=== PATIENT | male | born 1965 | race Caucasian/White ===

== ENCOUNTER 2020-09-22 20:19 | Inpatient (IN) | payer OTHER, SELFPAY ==
[2020-09-22] VITALS (15 sets, daily range): BP systolic 89–125; BP diastolic 50–59; PULSE 54–73; RESP 14–23; TEMP 37.1; O2SAT 88–98
--- NOTE | 2020-09-22 20:37 | DI.RAD.S_ITS ---
PROCEDURE: XR CHEST 1V INDICATIONS: chest pain TECHNIQUE: One view of the chest was acquired. COMPARISON: None. FINDINGS: Surgical changes and devices: Mediastinum wires.. Lungs and pleura: Patchy opacities noted in the left lung base which could represent atelectasis or pneumonia. No pleural effusions or pneumothorax. Mediastinum: Mediastinal contours appear normal. Heart is enlarged. Bones and chest wall: No suspicious bony lesions. Overlying soft tissues appear unremarkable. IMPRESSION: Patchy left basilar airspace opacities which could represent atelectasis or pneumonia. Dictated by: Patricia Gonzalez MD, PhD on 09/22/2020 at 21:00 Approved by: Patricia Gonzalez MD, PhD on 09/22/2020 at 21:01
[2020-09-22] MEDS: SODIUM CHLORIDE 0.9% 1,000 ML 1000 ML IV ×2 (20:42→23:36)
[2020-09-22 20:45] LABS: INR 1.2 (0.9-1.3); Prothrombin Time 13.4 SECONDS (10.1-12.7)
[2020-09-22 20:48] LABS: Add Manual Diff / Slide Review NO; Basophils Absolute Auto 0 /uL (0-100); Basophils Percent Auto 0.4 % (0-2); Eosinophils Absolute Auto 0 /uL (0-450); Hematocrit 42.7 % (41-53); Hemoglobin 14.1 g/dL (13.5-17.5); Lymphocytes Absolute Auto 900 /uL (1100-4500); Lymphocytes Percent Auto 24.7 % (25-40); Mean Corpuscular HGB Conc 33.1 % (30-36); Mean Corpuscular Volume 84.7 fL (80-100); Monocytes Absolute Auto 400 /uL (0-900); Monocytes Percent Auto 10.9 % (3-14); Neutrophils Absolute Auto 2200 /uL (1500-7000); PTT Partial Thromboplastin Tim 32 SECONDS (26.4-36.2); Platelet Count 116 X10^3/uL (150-400); Red Blood Cell Count 5.04 X10^6/uL (4.5-5.9); Red Cell Distribution Width 14.4 % (11.6-14.8); White Blood Cell Count 3.5 X10^3/uL (4.5-11.0)
[2020-09-22 20:50] LABS: Alanine Aminotransferase 48 IU/L (<50); Albumin 3.6 g/dL (3.5-5.0); Albumin Globulin Ratio 1.2 (1.0-2.8); Alkaline Phosphatase 78 U/L (38-126); Aspartate Aminotransferase 82 IU/L (17-59); BUN Creatinine Ratio 16.4 (6-22); Bilirubin Total 0.4 mg/dL (0.2-1.3); Blood Urea Nitrogen 22 mg/dL (9-20); Calcium 8.3 mg/dL (8.4-10.2); Carbon Dioxide 23 mmol/L (22-32); Chloride 101 mmol/L (98-107); Creatine Kinase 188 U/L (55-170); Estimated Glomerular Filt Rate 55.3 mL/min (>60); Globulin 3.1 g/dL (1.7-4.1); Glucose 259 mg/dL (70-100); HEMOLYSIS 15 (0-50); Potassium 3.4 mmol/L (3.4-5.1); Sodium 134 mmol/L (137-145); Total Protein 6.7 g/dL (6.3-8.2)
[2020-09-22 21:02] LABS: Troponin I 0.034 ng/mL (0.01-0.034)
--- NOTE | 2020-09-22 21:12 | ED_ITS ---
HPI - Syncope General Chief Complaint: Syncope Stated Complaint: Syncope + COVID Saturday Time Seen by Provider: 09/22/20 20:23 Source: family and EMS Mode of arrival: EMS Limitations: no limitations History of Present Illness HPI narrative: This is a 54-year-old male who tested positive for COVID on Saturday. He initially had symptoms starting approximately a week ago on Saturday. Patient states he has had diaphoresis, myalgias, nausea without vomiting, diarrhea and felt generally unwell. He denies chest pain or pressure. He does not think he is having shortness of breath. He states that today he thought he was going to throw up, he got up to get to the bathroom realized he was not going to make it. He states he had a syncopal episode. He did feel like he was about to pass out. States he has been drinking fluids but not much. Patient does have a cardiac history. He has a triple bypass which was subsequently stented, hypertension, dyslipidemia, diabetes and is on insulin. Patient states that he and his live in their RV and travel. His primary care and Cardiology are in [place], [place]. Related Data Home Medications Medication Instructions Recorded Confirmed amlodipine 5 mg PO DAILY 09/22/20 09/22/20 aspirin 81 mg PO DAILY 09/22/20 09/22/20 atorvastatin 40 mg PO DAILY 09/22/20 09/22/20 clopidogrel [Plavix] 75 mg PO DAILY 09/22/20 09/22/20 dulaglutide [Trulicity] 1.5 mg SUBCUT QWEEK 09/22/20 09/22/20 empagliflozin [Jardiance] 25 mg PO QAM 09/22/20 09/22/20 fenofibrate 54 mg PO DAILY 09/22/20 09/22/20 hydralazine 50 mg PO BID 09/22/20 09/22/20 hydrochlorothiazide 25 mg PO Q OTHER DAY 09/22/20 09/22/20 insulin degludec [Tresiba U-100 76 unit SUBCUT DAILY 09/22/20 09/22/20 Insulin] insulin lispro [Humalog Pen] 15 unit SUBCUT DAILY 09/22/20 09/22/20 isosorbide dinitrate 20 mg PO BID 09/22/20 09/22/20 metformin 1,000 mg PO BID 09/22/20 09/22/20 metoprolol tartrate 200 mg PO DAILY 09/22/20 09/22/20 terazosin 5 mg PO DAILY 09/22/20 09/22/20 vitamin B complex [B 1 tab PO DAILY 09/22/20 09/22/20 Complex-Vitamin B12] Allergies Allergy/AdvReac Type Severity Reaction Status Date / Time lisinopril Allergy Anaphylaxis Verified 09/22/20 20:32 Review of Systems Review of Systems ROS Unobtainable: All systems reviewed & are unremarkable except as noted in HPI and below Patient History Medical History (Updated 09/23/20 @ 02:00 by JESSICA Hilario) Coronary artery disease due to type 2 diabetes mellitus Coronary artery disease involving autologous artery coronary bypass graft Essential hypertension Hyperlipidemia associated with type 2 diabetes mellitus Insulin dependent type 2 diabetes mellitus, uncontrolled Surgical History (Updated 09/23/20 @ 02:00 by JESSICA Hilario) History of coronary artery stent placement Hx of CABG Family History (Updated 09/23/20 @ 02:02 by JESSICA Hilario) Father Heart attack Hyperlipidemia Hypertension Mother Parent-child estrangement nec Social History household members: spouse Smoking Status: Never smoker Smoking Status: Never smoker alcohol intake frequency: other Substance Use Type: does not use Exam Narrative Exam Narrative: GENERAL: Alert and oriented x three, male in mild distress. Patient does feel warm to the touch. Patient is resting with his eyes closed. HEENT: Head normocephalic, atraumatic, EOMI, pupils reactive, face symmetric, moist mucous membranes NECK: Supple, full range of motion CARDIOVASCULAR: Regular rate and rhythm without murmurs, rubs or gallops. Midline healed chest incision consistent with prior CABG. RESPIRATORY: Breath sounds equal bilaterally, no wheezes rales or rhonchi. No tachypnea noted, no accessory muscle use. ABDOMEN: Soft, nontender. Normoactive bowel sounds all 4 quadrants. No guarding or rebound, rigidity, no mass : No CVA tenderness EXTREMITIES: Normal range of motion, no clubbing or edema. 2+ pulses bilateral lower extremities. Neurovascularly intact. NEUROLOGICAL: Cranial nerves II through XII grossly intact. Moving all extremities SKIN: Warm, dry, no petechiae, no rashes or lesions. Initial Vital Signs Initial Vital Signs: Vital Signs Temperature 98.8 F 09/22/20 20:27 Pulse Rate 57 L 09/22/20 20:27 Respiratory Rate 17 09/22/20 20:27 Blood Pressure 89/51 L 09/22/20 20:27 Pulse Oximetry 94 09/22/20 20:27 Scores GCS Negley coma scale eye opening: Spontaneous Negley coma scale verbal response: Orientated Beulah coma scale motor response: Obey commands Beulah coma scale total score: 15 Course Orders Ordered: ED Orders 09/22/20 20:25 C-Reactive Protein Quant Stat Complete Blood Count AUTO DIFF Stat Comprehensive Metabolic Panel Stat D Dimer Stat Erythrocyte Sedimentation Rate Urgent Ferritin Stat Hemoglobin A1C% w Est Avg Glu Urgent Lactate Dehydrogenase Stat Magnesium Urgent Partial Thromboplastin Time Stat Procalcitonin Stat Prothrombin Time INR Stat Troponin & CK Cardiac Panel Stat 09/22/20 20:37 XR chest 1V Stat 09/22/20 21:45 COVID19 - ADMIT (N[employer]ELTY TWISTER TENDER swab/PCR) Stat 09/22/20 21:55 Lactate (Lactic Acid) Stat 09/22/20 22:15 Blood Culture Stat 09/22/20 23:31 Education, smoking cessation ONGOING 09/22/20 23:55 Potassium Urgent 09/23/20 05:00 Comprehensive Metabolic Panel DAILY NT-proBNP (BNP-Adult 18+) Routine Prothrombin Time INR DAILY 09/24/20 05:00 Comprehensive Metabolic Panel DAILY Prothrombin Time INR DAILY Acetaminophen (Acetaminophen 325 Mg Tablet) 650 mg PO Q6HR PRN PRN Reason: Fever/Mild Pain (1-3) Albuterol (Albuterol Hfa Mdi 60 Puff/8 Gm Inhaler) 2 puff INH RTQ4HR PRN PRN Reason: Shortness Of Breath Amlodipine Besylate (Amlodipine 5 Mg Tablet) 5 mg PO DAILY LUCIEN Aspirin (Aspirin 81 Mg Chew Tab) 81 mg PO DAILY LUCIEN Atorvastatin Calcium (Atorvastatin 20 Mg Tablet) 40 mg PO DAILY LUCIEN Bisacodyl (Bisacodyl 5 Mg Tablet) 10 mg PO DAILY PRN PRN Reason: Constipation Clopidogrel Bisulfate (Clopidogrel 75 Mg Tablet) 75 mg PO DAILY LUCIEN Dexamethasone (Dexamethasone 10 Mg/Ml Vial) 6 mg PO DAILY LUCIEN Stop: 09/28/20 08:59 Dextrose (Dextrose 50 % In Water 25 Gm/50 Ml Syringe) 25 gm IV PRN PRN PRN Reason: Hypoglycemia Hydralazine HCl (Hydralazine 25 Mg Tablet) 50 mg PO BID LUCIEN Sodium Chloride (Normal Saline 0.9%) 1,000 mls @ 60 mls/hr IV CONT LUCIEN Last Admin: 09/23/20 00:30 Dose: 60 mls/hr Documented by: BUCK Remdesivir 100 mg/ Sodium (Chloride) 250 mls @ 250 mls/hr IV DAILY LUCIEN Stop: 09/28/20 08:59 Insulin Aspart (Insulin Aspart 100 Unit/Ml Insuln Pen) 0 unit SUBCUT ACHS [facility]; Protocol Last Admin: 09/23/20 01:58 Dose: 2 unit Documented by: BUCK Cosigned by: GPEREZ Isosorbide Dinitrate (Isosorbide Dinitrate 20 Mg Tablet) 20 mg PO BID [facility] Metoprolol Tartrate (Metoprolol Ir 50 Mg Tablet) 200 mg PO DAILY [facility] Naloxone HCl (Naloxone 0.4 Mg/Ml Vial) 0.2 mg IV Q2MIN PRN PRN Reason: Opiate Reversal Fenofibrate 54 Mg (Tablet) 54 mg PO DAILY [facility] Vitamin B Complex [B Complex-Vitamin B12 ] Tablet) 1 tab PO DAILY [facility] Ondansetron HCl (Ondansetron 4 Mg Odt) 4 mg PO Q8HR PRN PRN Reason: Nausea And Vomiting Pantoprazole Sodium (Pantoprazole 20 Mg Tablet) 20 mg PO 0600 LUCIEN Terazosin HCl (Terazosin 5 Mg Capsule) 5 mg PO DAILY LUCIEN Discontinued Medications Dexamethasone (Dexamethasone 10 Mg/Ml Vial) 6 mg IV NOW ONE Stop: 09/22/20 23:17 Last Admin: 09/22/20 23:36 Dose: 6 mg Documented by: FACUNDO Sodium Chloride (Normal Saline 0.9%) 1,000 mls @ 1,000 mls/hr IV BOLUS ONE Stop: 09/22/20 21:40 Last Infusion: 09/22/20 21:46 Dose: 0 mls/hr Documented by: Admin: 09/22/20 20:42 Dose: 1,000 mls/hr Documented by: FACUNDO Sodium Chloride (Normal Saline 0.9%) 1,000 mls @ 1,000 mls/hr IV BOLUS ONE Stop: 09/23/20 00:09 Last Admin: 09/22/20 23:36 Dose: 1,000 mls/hr Documented by: FACUNDO Remdesivir 200 mg/ Sodium (Chloride) 250 mls @ 250 mls/hr IV NOW ONE Stop: 09/22/20 23:17 Last Admin: 09/23/20 00:45 Dose: 250 mls/hr Documented by: BUCK Reevaluation(s) Time: 23:10 Consultations Consultation #1: JOURDAN Kitchen, accepts for observation. Time: 23:10 Vital Signs Vital signs: Vital Signs - 8 hr 09/22/20 20:27 09/22/20 20:32 09/22/20 20:50 Temperature 98.8 F Pulse Rate 57 L 54 L 61 Respiratory Rate 17 14 23 Blood Pressure 89/51 L 116/56 L Pulse Oximetry 94 92 92 09/22/20 21:00 09/22/20 21:15 09/22/20 21:30 Temperature Pulse Rate 66 73 68 Respiratory Rate 22 22 19 Blood Pressure 119/57 L 125/59 L 109/54 L Pulse Oximetry 96 97 97 09/22/20 21:45 09/22/20 22:00 09/22/20 22:15 Temperature Pulse Rate 66 70 67 Respiratory Rate 15 14 20 Blood Pressure 92/50 L 97/54 L 102/55 L Pulse Oximetry 97 97 97 09/22/20 22:30 09/22/20 22:45 09/22/20 23:00 Temperature Pulse Rate 68 70 67 Respiratory Rate 19 20 18 Blood Pressure 103/54 L 109/55 L 107/55 L Pulse Oximetry 98 97 97 09/22/20 23:15 09/22/20 23:30 09/22/20 23:46 Temperature Pulse Rate 65 64 65 Respiratory Rate 20 19 14 Blood Pressure 112/56 L 117/55 L 124/59 L Pulse Oximetry 97 97 98 MDM - Syncope Lab Data Attestation: I reviewed the patient's lab results. Result diagrams: 09/22/20 20:25 09/22/20 23:55 Labs: Lab Results 09/22/20 09/22/20 09/22/20 Range/Units 20:25 20:25 20:25 WBC 3.5 L (4.5-11.0) X10^3/uL RBC 5.04 (4.5-5.9) X10^6/uL Hgb 14.1 (13.5-17.5) g/dL Hct 42.7 (41-53) % MCV 84.7 (80-100) fL MCH 28.0 (26-34) PG MCHC 33.1 (30-36) % RDW 14.4 (11.6-14.8) % Plt Count 116 L (150-400) X10^3/uL Neut % (Auto) 64.0 (50-75) % Lymph % (Auto) 24.7 L (25-40) % Coos % (Auto) 10.9 (3-14) % Eos % (Auto) 0.0 L (2-4) % Baso % (Auto) 0.4 (0-2) % Neut # (Auto) 2200 (7074-3252) /uL Lymph # (Auto) 900 L (6098-8972) /uL Coos # (Auto) 400 (0-900) /uL Eos # (Auto) 0 (0-450) /uL Baso # (Auto) 0 (0-100) /uL ESR (0-15) MM/HR PT 13.4 H (10.1-12.7) SECONDS INR 1.2 (0.9-1.3) APTT 32 (26.4-36.2) SECONDS D-Dimer (<230) ng/mL Sodium 134 L (137-145) mmol/L Potassium 3.4 (3.4-5.1) mmol/L Chloride 101 (98-107) mmol/L Carbon Dioxide 23 (22-32) mmol/L BUN 22 H (9-20) mg/dL Creatinine 1.34 H (0.66-1.25) mg/dL Estimated GFR 55.3 L (>60) mL/min BUN/Creatinine Ratio 16.4 (6-22) Glucose 259 H (70-100) mg/dL Lactate (0.7-2.1) mmol/L Calcium 8.3 L (8.4-10.2) mg/dL Magnesium (1.6-2.3) mg/dL Ferritin (18-464) ng/mL Total Bilirubin 0.4 (0.2-1.3) mg/dL AST 82 H (17-59) IU/L ALT 48 (<50) IU/L Alkaline Phosphatase 78 (38-126) U/L Lactate Dehydrogenase (313-618) U/L Total Creatine Kinase 188 H (55-170) U/L CK-MB (CK-2) < 0.22 (<2.37) ng/mL CK-MB (CK-2) Rel Index 0.1 L (1.5-5.0) % Troponin I 0.034 (0.01-0.034) ng/mL C-Reactive Protein (<1.0) mg/dL Total Protein 6.7 (6.3-8.2) g/dL Albumin 3.6 (3.5-5.0) g/dL Globulin 3.1 (1.7-4.1) g/dL Albumin/Globulin Ratio 1.2 (1.0-2.8) Procalcitonin (<0.5) ng/mL SARS-CoV-2 (PCR) (Negative) 09/22/20 09/22/20 09/22/20 Range/Units 20:25 20:25 20:25 WBC (4.5-11.0) X10^3/uL RBC (4.5-5.9) X10^6/uL Hgb (13.5-17.5) g/dL Hct (41-53) % MCV (80-100) fL MCH (26-34) PG MCHC (30-36) % RDW (11.6-14.8) % Plt Count (150-400) X10^3/uL Neut % (Auto) (50-75) % Lymph % (Auto) (25-40) % Coos % (Auto) (3-14) % Eos % (Auto) (2-4) % Baso % (Auto) (0-2) % Neut # (Auto) (8650-2113) /uL Lymph # (Auto) (1898-5911) /uL Coos # (Auto) (0-900) /uL Eos # (Auto) (0-450) /uL Baso # (Auto) (0-100) /uL ESR (0-15) MM/HR PT (10.1-12.7) SECONDS INR (0.9-1.3) APTT (26.4-36.2) SECONDS D-Dimer 204 (<230) ng/mL Sodium (137-145) mmol/L Potassium (3.4-5.1) mmol/L Chloride (98-107) mmol/L Carbon Dioxide (22-32) mmol/L BUN (9-20) mg/dL Creatinine (0.66-1.25) mg/dL Estimated GFR (>60) mL/min BUN/Creatinine Ratio (6-22) Glucose (70-100) mg/dL Lactate (0.7-2.1) mmol/L Calcium (8.4-10.2) mg/dL Magnesium 2.0 (1.6-2.3) mg/dL Ferritin 220 (18-464) ng/mL Total Bilirubin (0.2-1.3) mg/dL AST (17-59) IU/L ALT (<50) IU/L Alkaline Phosphatase (38-126) U/L Lactate Dehydrogenase 678 H (313-618) U/L Total Creatine Kinase (55-170) U/L CK-MB (CK-2) (<2.37) ng/mL CK-MB (CK-2) Rel Index (1.5-5.0) % Troponin I (0.01-0.034) ng/mL C-Reactive Protein 5.9 H (<1.0) mg/dL Total Protein (6.3-8.2) g/dL Albumin (3.5-5.0) g/dL Globulin (1.7-4.1) g/dL Albumin/Globulin Ratio (1.0-2.8) Procalcitonin 0.15 (<0.5) ng/mL SARS-CoV-2 (PCR) (Negative) 09/22/20 09/22/20 09/22/20 Range/Units 20:25 21:45 21:55 WBC (4.5-11.0) X10^3/uL RBC (4.5-5.9) X10^6/uL Hgb (13.5-17.5) g/dL Hct (41-53) % MCV (80-100) fL MCH (26-34) PG MCHC (30-36) % RDW (11.6-14.8) % Plt Count (150-400) X10^3/uL Neut % (Auto) (50-75) % Lymph % (Auto) (25-40) % Coos % (Auto) (3-14) % Eos % (Auto) (2-4) % Baso % (Auto) (0-2) % Neut # (Auto) (8841-1900) /uL Lymph # (Auto) (9194-9344) /uL Coos # (Auto) (0-900) /uL Eos # (Auto) (0-450) /uL Baso # (Auto) (0-100) /uL ESR 15 (0-15) MM/HR PT (10.1-12.7) SECONDS INR (0.9-1.3) APTT (26.4-36.2) SECONDS D-Dimer (<230) ng/mL Sodium (137-145) mmol/L Potassium (3.4-5.1) mmol/L Chloride (98-107) mmol/L Carbon Dioxide (22-32) mmol/L BUN (9-20) mg/dL Creatinine (0.66-1.25) mg/dL Estimated GFR (>60) mL/min BUN/Creatinine Ratio (6-22) Glucose (70-100) mg/dL Lactate 0.9 (0.7-2.1) mmol/L Calcium (8.4-10.2) mg/dL Magnesium (1.6-2.3) mg/dL Ferritin (18-464) ng/mL Total Bilirubin (0.2-1.3) mg/dL AST (17-59) IU/L ALT (<50) IU/L Alkaline Phosphatase (38-126) U/L Lactate Dehydrogenase (313-618) U/L Total Creatine Kinase (55-170) U/L CK-MB (CK-2) (<2.37) ng/mL CK-MB (CK-2) Rel Index (1.5-5.0) % Troponin I (0.01-0.034) ng/mL C-Reactive Protein (<1.0) mg/dL Total Protein (6.3-8.2) g/dL Albumin (3.5-5.0) g/dL Globulin (1.7-4.1) g/dL Albumin/Globulin Ratio (1.0-2.8) Procalcitonin (<0.5) ng/mL SARS-CoV-2 (PCR) Positive H (Negative) Point of Care Testing Glucose POC 244 Imaging Data Chest x-ray: Radiologist's Impression: [address] [id number] ReportSigned Patient: Michael Hand#: [id number]: 1965Acct:[id number]/Sex: 54 / MDate of Service: 09/22/20Loc: EDAccession Number: [id number] Procedure: XR chest 1V Ordering Provider: Lisa Boggs D.O. PROCEDURE: XR CHEST 1V INDICATIONS: chest pain TECHNIQUE: One view of the chest was acquired. COMPARISON: None. FINDINGS: Surgical changes and devices: Mediastinum wires.. Lungs and pleura: Patchy opacities noted in the left lung base which could represent atelectasis or pneumonia. No pleural effusions or pneumothorax. Mediastinum: Mediastinal contours appear normal. Heart is enlarged. Bones and chest wall: No suspicious bony lesions. Overlying soft tissues appear unremarkable. IMPRESSION: Patchy left basilar airspace opacities which could represent atelectasis or pneumonia. Dictated by: Patricia Gonzalez MD, PhD on 09/22/2020 at 21:00 Approved by: Patricia Gonzalez MD, PhD on 09/22/2020 at 21:01 ECG Data Attestation: I personally reviewed and interpreted this ECG as follows: Prior ECG tracings: not available for review Interpretation: Sinus rhythm nonspecific ST changes. Rate of 60 MN 148 QRS 100 QTC 452. Patient has Q-wave in [address] elevation appreciated. Nonspecific change. No prior available. MDM Narrative Medical decision making narrative: 54-year-old male comes emergency department with known COVID infection diagnosed on Saturday with approximately 1 week of symptoms. Patient has been having nausea, vomiting and diarrhea. He does not feel short of breath at this time but did dip to 88% while resting. Patient does use a CPAP at night but unclear if there is any oxygen involved. He lives in an so this seems less likely. Patient was hypotensive with EMS, his blood pressure continued to improve with fluids patient continued to be hydrated gently. Patient does have a cardiac history. Troponin and EKG do not show any clear ischemic changes. His chest x-ray does show pneumonia, he is COVID positive here at [facility]. His labs show an elevation of lactate dehydrogenase, I leukopenia with thrombocytopenia. Negative D-dimer. Creatinine is 1.34 unclear what his normal baseline is. Glucose is elevated at 259. Patient does not have an elevated procalcitonin suggesting overlying bacterial infection is unlikely. His CRP is elevated. With patient's episode of hypoxia, COVID pneumonia and syncopal episode discussed with and N[employer]ELTY TWISTER TENDER Imtiaz who accepts for observation. As patient is on O2 dexamethasone 6 mg was ordered as well as Remdesivir. Discharge Plan Departure Patient Disposition: Admitted as Observation Clinical Impression: Pneumonia due to 2019-nCoV, Syncope Admit Date/Time: 09/22/20 23:54 Admit Provider: Sari Kitchen
[2020-09-22 21:15] LABS: CKMB % Relative Index 0.1 % (1.5-5.0); Creatine Kinase MB < 0.22 ng/mL (<2.37)
[2020-09-22 21:39] LABS: D Dimer 204 ng/mL (<230)
[2020-09-22 21:49] LABS: C-Reactive Protein Quant 5.9 mg/dL (<1.0)
[2020-09-22 22:00] LABS: Procalcitonin 0.15 ng/mL (<0.5)
[2020-09-22 22:02] LABS: Lactate Dehydrogenase 678 U/L (313-618)
[2020-09-22 22:14] LABS: Lactate (Lactic Acid) 0.9 mmol/L (0.7-2.1)
[2020-09-22 22:18] LABS: Ferritin 220 ng/mL (18-464)
[2020-09-22] MEDS: DEXAMETHASONE 10 MG/ML VIAL 6 MG IV (23:36)
--- NOTE | 2020-09-22 23:44 | PC.NURSE ---
patient desatting while sleeping to 88% on RA> He reports he has sleep apnea and does not have his CPAP machine.
[2020-09-23] VITALS (14 sets, daily range): BP systolic 121–155; BP diastolic 58–69; PULSE 59–67; RESP 13–20; TEMP 36.3–37.6; O2SAT 92–98; BMI 33.3
[2020-09-23 00:14] LABS: Erythrocyte Sedimentation Rate 15 MM/HR (0-15)
[2020-09-23 00:14] LABS: HEMOLYSIS < 15 (0-50); Potassium 3.8 mmol/L (3.4-5.1)
--- NOTE | 2020-09-23 00:21 | P.HP_ITS ---
History of Present Illness History of Present Illness Date Patient Seen: 09/22/20 Time Patient Seen: 23:54 Chief complaint: Syncope + COVID Saturday Narrative: Patient is a 54-year-old male Rickie Hand who tested positive for COVID on Saturday. Patient presented to the ED for chief complaint of diaphoresis, myalgias, nausea without vomiting, diarrhea and felt generally unwell, symptoms starting approximately a week ago on Saturday. He states he had a syncopal episode yesterday at approximately 8:00 p.m., observed by his , he is unsure as to how long he lost consciousness but things with approximately a few seconds he does not believe he hit his head but is unsure. He did feel like he was about to pass out for the past several days, but that sensation has resolved upon admit. The patient reports that he has had diarrhea up to 5 times a day for the past several days, mild diffuse cramping abdominal pain, positive nausea and coughing, runny nose, scratchy throat but no vomiting, fever, body aches or chills. He denies chest pain, pressure, shortness of breath, loss of taste, leg pain, or swelling of his feet or lower legs. He states that he has b een incontinent of urine for the past couple days ?I have been getting up to get to the bathroom realizing I was not going to make it. This is a new symptom for him and just onset couple days ago. He denies burning urgency or frequency. States he has been drinking fluids but has a poor appetite. Patient does have a cardiac history he has had 4 heart attacks and a triple bypass with subsequently 6 stents, hypertension, dyslipidemia. Patient denies a history of PE or DVT. Patient states that he retired so that he and his could live in their RV and travel. His primary care and Cardiology are in [place]. Hortencia is being tested for COVID tomorrow. Upon admit to the floor patient's vital signs are as follows temp 98.8?, BP 103/54, HR 68, RR 19, O2 saturation 98% on 2 L nasal cannula. Labs patient has a positive COVID PCR, WBC 3.5, platelets 116, Na 134, BUN 22, CR 1.34, glucose 259, EGFR 55.3, D-dimer 204, lactate 678, total creatinine kinase 188, CK-MB RI 0.1%, troponin 0.034, CRP 5.9, procalcitonin 0.15. CXR:Patchy left basilar airspace opacities which could represent atelectasis or pneumonia. Patient will it be admitted to the hospital for observation/isolation for COVID pneumonia, patient is on O2 so will initiate remdesivir 200 mg and dexamethasone 6 mg in the ED per protocol. Patient History Medical History (Updated 09/23/20 @ 02:00 by JESSICA Hilario) Coronary artery disease due to type 2 diabetes mellitus Coronary artery disease involving autologous artery coronary bypass graft Essential hypertension Hyperlipidemia associated with type 2 diabetes mellitus Insulin dependent type 2 diabetes mellitus, uncontrolled Surgical History (Updated 09/23/20 @ 02:00 by JESSICA Hilario) History of coronary artery stent placement Hx of CABG Family & Social History Family History (Updated 09/23/20 @ 02:02 by JESSICA Hilario) Father Heart attack Hyperlipidemia Hypertension Mother Parent-child estrangement nec Safety & Behavioral: Feels Safe in Current Yes Environment Been Physically Hurt or No Threatened By a Person Tobacco & Substance use: Smoking Status Never smoker alcohol intake frequency other Substance Use Type does not use Meds Home Medications and Allergies Home Medications Medication Instructions Recorded Confirmed Type amlodipine 5 mg PO DAILY 09/22/20 09/22/20 History aspirin 81 mg PO DAILY 09/22/20 09/22/20 History atorvastatin 40 mg PO DAILY 09/22/20 09/22/20 History clopidogrel [Plavix] 75 mg PO DAILY 09/22/20 09/22/20 History dulaglutide [Trulicity] 1.5 mg SUBCUT QWEEK 09/22/20 09/22/20 History empagliflozin [Jardiance] 25 mg PO QAM 09/22/20 09/22/20 History fenofibrate 54 mg PO DAILY 09/22/20 09/22/20 History hydralazine 50 mg PO BID 09/22/20 09/22/20 History hydrochlorothiazide 25 mg PO Q OTHER DAY 09/22/20 09/22/20 History insulin degludec [Tresiba U-100 76 unit SUBCUT DAILY 09/22/20 09/22/20 History Insulin] insulin lispro [Humalog Pen] 15 unit SUBCUT DAILY 09/22/20 09/22/20 History isosorbide dinitrate 20 mg PO BID 09/22/20 09/22/20 History metformin 1,000 mg PO BID 09/22/20 09/22/20 History metoprolol tartrate 200 mg PO DAILY 09/22/20 09/22/20 History terazosin 5 mg PO DAILY 09/22/20 09/22/20 History vitamin B complex [B 1 tab PO DAILY 09/22/20 09/22/20 History Complex-Vitamin B12] Allergies Allergy/AdvReac Type Severity Reaction Status Date / Time lisinopril Allergy Anaphylaxis Verified 09/22/20 20:32 Review of Systems Review of Systems ROS: Yes All systems reviewed with the patient and are negative except as otherwise documented Constitutional Constitutional: Reports fatigue and Reports poor appetite Eyes Eyes: Reports system reviewed and no additional complaints, except as documented ENT Ears, Nose, Mouth, and Throat: Yes system reviewed and no additional complaints, except as documented, Yes nasal discharge and Yes sore throat (Mild scratchy) Cardiovascular Cardiovascular: Reports syncope and Reports dyspnea on exertion Respiratory Respiratory: Reports cough and Reports dyspnea on exertion Gastrointestinal Gastrointestinal: Reports abdominal pain, Reports cramping and Reports loose stools Genitourinary Genitourinary: Reports urinary incontinence Neurologic Neurologic: Reports syncope Endocrine Endocrine: Reports fatigue Exam Vital Signs (past 8 hours): - 09/22/20 20:27 09/22/20 20:32 09/22/20 20:50 Temperature 98.8 F Pulse Rate 57 L 54 L 61 Respiratory Rate 17 14 23 Blood Pressure 89/51 L 116/56 L Pulse Oximetry 94 92 92 09/22/20 21:00 09/22/20 21:15 09/22/20 21:30 Temperature Pulse Rate 66 73 68 Respiratory Rate 22 22 19 Blood Pressure 119/57 L 125/59 L 109/54 L Pulse Oximetry 96 97 97 09/22/20 21:45 09/22/20 22:00 09/22/20 22:15 Temperature Pulse Rate 66 70 67 Respiratory Rate 15 14 20 Blood Pressure 92/50 L 97/54 L 102/55 L Pulse Oximetry 97 97 97 09/22/20 22:30 09/22/20 22:45 09/22/20 23:00 Temperature Pulse Rate 68 70 67 Respiratory Rate 19 20 18 Blood Pressure 103/54 L 109/55 L 107/55 L Pulse Oximetry 98 97 97 09/22/20 23:15 09/22/20 23:30 Temperature Pulse Rate 65 64 Respiratory Rate 20 19 Blood Pressure 112/56 L 117/55 L Pulse Oximetry 97 97 Oxygen Delivery Method Nasal Cannula Oxygen Flow Rate 2 Narrative Exam Narrative: General: Patient is a well-developed, well-nourished delightful male in no distress at this time. HEENT: Normocephalic, atraumatic, extraocular muscles intact, oral pharynx is clear and mucous membranes are dry. Neck is supple and symmetric, trachea is midline, no adenopathy, no thyroid enlargement, nontender, no masses palpated. Negative for JVD Chest: Normal AP diameter and contour without kyphoscoliosis, no nasal flaring, retractions, or tachypneic labored Lungs: Auscultation of all lung reyna are clear decreased but equal without adventitious sounds, wheezes, rhonchi, or rales. Cardio: S1 & S2 with regular rate and rhythm without murmur, rubs, or gallops, no carotid bruit, no cardiac pulsations present. Abdomen: Soft mild diffuse tenderness, negative for organomegaly, or masses. Bowel sounds are hyperactive present in all 4 quadrants without guarding or rebound, no CVA tenderness. Musculoskeletal: Muscle strength and tone are equal within normal limits, no deformity, crepitus, effusions, cyanosis, clubbing or edema present. Full range of motion intact radial and pedal pulses are normal. Skin: Warm dry and intact without rashes, ulcerations or petechiae. Neuro: Alert and orientated x3, strength is +5/5 in all extremities, sensation to touch intact, no gross deficits noted of cranial nerves. Psych: Patient has a well-kept appearance, appropriate affect, mental status attitude thought context and judgment are appropriate for age. Objective Labs Result Diagrams: 09/22/20 20:25 09/22/20 23:55 Labs: Laboratory Results - last 24 hr 09/22/20 09/22/20 09/22/20 20:25 20:25 20:25 WBC 3.5 L RBC 5.04 Hgb 14.1 Hct 42.7 MCV 84.7 MCH 28.0 MCHC 33.1 RDW 14.4 Plt Count 116 L Neut % (Auto) 64.0 Lymph % (Auto) 24.7 L Brewster % (Auto) 10.9 Eos % (Auto) 0.0 L Baso % (Auto) 0.4 Neut # (Auto) 2200 Lymph # (Auto) 900 L Brewster # (Auto) 400 Eos # (Auto) 0 Baso # (Auto) 0 ESR PT 13.4 H INR 1.2 APTT 32 D-Dimer Sodium 134 L Potassium 3.4 Chloride 101 Carbon Dioxide 23 BUN 22 H Creatinine 1.34 H Estimated GFR 55.3 L BUN/Creatinine Ratio 16.4 Glucose 259 H Lactate Calcium 8.3 L Magnesium Ferritin Total Bilirubin 0.4 AST 82 H ALT 48 Alkaline Phosphatase 78 Lactate Dehydrogenase Total Creatine Kinase 188 H CK-MB (CK-2) < 0.22 CK-MB (CK-2) Rel Index 0.1 L Troponin I 0.034 C-Reactive Protein Total Protein 6.7 Albumin 3.6 Globulin 3.1 Albumin/Globulin Ratio 1.2 Procalcitonin SARS-CoV-2 (PCR) 09/22/20 09/22/20 09/22/20 20:25 20:25 20:25 WBC RBC Hgb Hct MCV MCH MCHC RDW Plt Count Neut % (Auto) Lymph % (Auto) [place] % (Auto) Eos % (Auto) Baso % (Auto) Neut # (Auto) Lymph # (Auto) Brewster # (Auto) Eos # (Auto) Baso # (Auto) ESR PT INR APTT D-Dimer 204 Sodium Potassium Chloride Carbon Dioxide BUN Creatinine Estimated GFR BUN/Creatinine Ratio Glucose Lactate Calcium Magnesium 2.0 Ferritin 220 Total Bilirubin AST ALT Alkaline Phosphatase Lactate Dehydrogenase 678 H Total Creatine Kinase CK-MB (CK-2) CK-MB (CK-2) Rel Index Troponin I C-Reactive Protein 5.9 H Total Protein Albumin Globulin Albumin/Globulin Ratio Procalcitonin 0.15 SARS-CoV-2 (PCR) 09/22/20 09/22/20 09/22/20 20:25 21:45 21:55 WBC RBC Hgb Hct MCV MCH MCHC RDW Plt Count Neut % (Auto) Lymph % (Auto) [place] % (Auto) Eos % (Auto) Baso % (Auto) Neut # (Auto) Lymph # (Auto) Brewster # (Auto) Eos # (Auto) Baso # (Auto) ESR 15 PT INR APTT D-Dimer Sodium Potassium Chloride Carbon Dioxide BUN Creatinine Estimated GFR BUN/Creatinine Ratio Glucose Lactate 0.9 Calcium Magnesium Ferritin Total Bilirubin AST ALT Alkaline Phosphatase Lactate Dehydrogenase Total Creatine Kinase CK-MB (CK-2) CK-MB (CK-2) Rel Index Troponin I C-Reactive Protein Total Protein Albumin Globulin Albumin/Globulin Ratio Procalcitonin SARS-CoV-2 (PCR) Positive H 09/22/20 23:55 WBC RBC Hgb Hct MCV MCH MCHC RDW Plt Count Neut % (Auto) Lymph % (Auto) [place] % (Auto) Eos % (Auto) Baso % (Auto) Neut # (Auto) Lymph # (Auto) Brewster # (Auto) Eos # (Auto) Baso # (Auto) ESR PT INR APTT D-Dimer Sodium Potassium 3.8 Chloride Carbon Dioxide BUN Creatinine Estimated GFR BUN/Creatinine Ratio Glucose Lactate Calcium Magnesium Ferritin Total Bilirubin AST ALT Alkaline Phosphatase Lactate Dehydrogenase Total Creatine Kinase CK-MB (CK-2) CK-MB (CK-2) Rel Index Troponin I C-Reactive Protein Total Protein Albumin Globulin Albumin/Globulin Ratio Procalcitonin SARS-CoV-2 (PCR) Assessment & Plan Assessment & Plan narrative: 1.Acute COVID pneumonia, acute, present on admission SARS-CoV-2 -positive COVID test 4 days ago, patient is not in respiratory distress, acute respiratory failure or hypoxic. -In ED: Respiratory panel- negative, positive COVID test on 09/20/20 , blood cultures pending, patient given 6 mg of dexamethasone, normal saline 1000 cc, remdesivir 200 mg. -patient to be monitored on tele medicine, reverse isolation room, isolation protocol vital signs q.4 hours, intake and output monitored Q shift, weight measure daily, diet: Heart healthy -Supplemental NC -maintain SaO2 greater than 90%, check peak flow expiratory flow q.day 1-2 days. -vital signs on admission: 98.8?, BP 103/54, HR 68, RR 19, O2 saturation 98% on 2 L nasal cannula. Labs patient has a positive COVID PCR, WBC 3.5, platelets 116, Na 134, BUN 22, CR 1.34, glucose 259, EGFR 55.3, D-dimer 204, lactate 678, total creatinine kinase 188, CK-MB RI 0.1%, troponin 0.034, CRP 5.9, procalcitonin 0.15. CXR:Patchy left basilar airspace opacities which could represent atelectasis or pneumonia. -medications ordered: Remdesivir 200 mg given in ED, starting tomorrow 100 mg p.o. q.day x5 days & dexamethasone 6 mg QD x 5 days or until D/C per coronavirus infectious disease guidelines per up-to-date [facility] Medical will management guidelines for COVID-19 patient's. -Consider proning if patient becomes hypoxic -On admit SOFA score of 3 , SAPS II Score of 15 (2.0% in-hospital risk of mortality) -albuterol HFA inhaler 2 puffs every 4-6 hours as needed cough or shortness of breath, -labs ordered PT/PTT every other day, troponin 48 hour repeat, D-dimer and lactate repeat in a.m., CBC and CMP daily, sputum culture and Gram stain- ordered in ED -avoiding nebulizer aerosol treatments, if signs and symptoms are worsening order chest x-ray and echo -monitor patient for developing respiratory distress, acute CO, ischemic stroke, PE, DVT, venous thrombosis, hyperglycemia an increased risk of bacterial, fungal, and strongyloides infections. -consults recommended for discharge physical therapy, occupational therapy, respiratory therapy. -prevention vaccine: Recommend yearly flu vaccine, shingles, pneumonia, COVID vaccine when it is available. 2. Syncopal episode, witnessed, acute, not present on admission-likely the result of hypotension secondary to COVID pneumonia infection resulting in dehydration from diarrhea. -provide hydration normal saline 100 cc/hour -patient denies head injury -fall precautions in place, monitor patient for hypotension and altered level of consciousness. 3. Insulin-dependent type 2 diabetes associated with hyperlipidemia and coronary artery disease, acute on chronic, uncontrolled, present on admission -BS 259, A1C ordered --will hold all oral/injection medications for diabetes, diabetes protocol ordered patient to receive NovoLog low-dose sliding scale Monitor for hypoglycemia. 4. Essential hypertension, chronic, not present on admission, associated with hyperlipidemia and coronary artery disease, chronic, control unknown ultimate resulting in CABG with stent placement x6, not present on admission -continue patient's amlodipine, Atrovent statin, Plavix, fenofibrate, hydralazine, hydrochlorothiazide, metoprolol -monitor patient for hypotension COVID PCR: Positive 09/20/2020 VTE prophylaxis: Patient on Plavix 75 mg Code status:Full Surrogate decision maker: Spouse Hortencia Peace Scores GCS [place] coma scale eye opening: Spontaneous [place] coma scale verbal response: Orientated [place] coma scale motor response: Obey commands [place] coma scale total score: 15 SOFA PaO2/FIO2: < 400 mmHg Platelets: < 150 Bilirubin: < 1.2 mg/dL Hypotension: MAP >= 70 mmHg [place] Coma Scale: 15 Renal: Creatinine 1.2-1.9 mg/dL SOFA Score: 3 Wells' Criteria for PE Clinical signs and symptoms of DVT: No PE is #1 Dx or equally likely: No Heart rate > 100: No Immobilization at least 3 days or surg in previous 4 weeks: No History of PE or DVT: No Hemoptysis: No Malignancy w/Treatment within 6 months or palliative: No Wells' PE Score total: 0
[2020-09-23] MEDS: SODIUM CHLORIDE 0.9% 1,000 ML 60 ML IV (00:30)
[2020-09-23] MEDS: REMDESIVIR 200 MG in SODIUM CHLORIDE 0.9% 210 ML 250 ML IV (00:45)
[2020-09-23] MEDS: INSULIN ASPART 100 UNIT/ML INSULN PEN SUBCUT ×5 (01:58→21:16)
[2020-09-23 02:51] LABS: Hemoglobin A1C% w Est Avg Glu 7.1 % (4.0-6.0)
[2020-09-23] MEDS: SODIUM CHLORIDE 0.9% 1,000 ML 100 ML IV ×3 (03:15→22:16)
[2020-09-23 04:49] LABS: INR 1.2 (0.9-1.3); Prothrombin Time 13.2 SECONDS (10.1-12.7)
[2020-09-23 04:50] LABS: Lactate (Lactic Acid) 0.9 mmol/L (0.7-2.1)
[2020-09-23 04:51] LABS: Alanine Aminotransferase 41 IU/L (<50); Albumin 3.2 g/dL (3.5-5.0); Albumin Globulin Ratio 1.1 (1.0-2.8); Alkaline Phosphatase 62 U/L (38-126); Aspartate Aminotransferase 61 IU/L (17-59); BUN Creatinine Ratio 19.3 (6-22); Bilirubin Total 0.2 mg/dL (0.2-1.3); Blood Urea Nitrogen 21 mg/dL (9-20); Calcium 7.2 mg/dL (8.4-10.2); Carbon Dioxide 23 mmol/L (22-32); Chloride 108 mmol/L (98-107); Estimated Glomerular Filt Rate > 60.0 mL/min (>60); Globulin 2.8 g/dL (1.7-4.1); Glucose 244 mg/dL (70-100); HEMOLYSIS < 15 (0-50); Potassium 4.2 mmol/L (3.4-5.1); Sodium 137 mmol/L (137-145)
[2020-09-23 04:59] LABS: D Dimer 250 ng/mL (<230)
[2020-09-23 05:00] LABS: NT-proBNP (BNP-Adult 18+) 155 pg/mL (<125)
[2020-09-23] MEDS: PANTOPRAZOLE 20 MG TABLET PO (05:04)
--- NOTE | 2020-09-23 05:26 | PC.ADMIT ---
[address] [facility] [id number] Admission Note: Patient arrived to unit at midnight from ED via stretcher, patient alert and oriented x4. Patient was able to stand and ambulate to bed. Patient not complaining of any pain or shortness of breath at this time. Patient on 2L nasal cannula and satting mid to upper 90s, other vital signs WNL. Patient is covid positive and was placed into negative pressure room. Patient was oriented to room and given call galvin. Bed in lowest position and wheels locked. Patient has IV fluids running. Patient verbalizes understanding to call for help if he needs to go to the bathroom. The patient,Rickie Hand,54 y/o, was given written information regarding hospital policies, unit procedures and contact persons. Patient's smoking status: Never smoker. Vital Signs - 8 hr 09/22/20 21:30 09/22/20 21:45 09/22/20 22:00 Temperature Pulse Rate 68 66 70 Respiratory Rate 19 15 14 Blood Pressure 109/54 L 92/50 L 97/54 L Pulse Oximetry 97 97 97 09/22/20 22:15 09/22/20 22:30 09/22/20 22:45 Temperature Pulse Rate 67 68 70 Respiratory Rate 20 19 20 Blood Pressure 102/55 L 103/54 L 109/55 L Pulse Oximetry 97 98 97 09/22/20 23:00 09/22/20 23:15 09/22/20 23:30 Temperature Pulse Rate 67 65 64 Respiratory Rate 18 20 19 Blood Pressure 107/55 L 112/56 L 117/55 L Pulse Oximetry 97 97 97 09/22/20 23:46 09/23/20 00:00 09/23/20 04:00 Temperature 99.1 F Pulse Rate 65 64 62 Respiratory Rate 14 13 15 Blood Pressure 124/59 L 133/63 124/58 L Pulse Oximetry 98 97 96
[2020-09-23 06:41] LABS: Bilirubin Urine UA NEGATIVE (NEGATIVE); Color Urine UA YELLOW; Glucose Urine UA 2+ g/dL (Negative); Ketones Urine UA TRACE (NEGATIVE); Leukocyte Esterase Urine UA NEGATIVE (NEGATIVE); Nitrite Urine UA POSITIVE (Negative); Occult Blood Urine UA TRACE-LYSED (Negative); Protein Urine UA 1+ (Negative); Urobilinogen Urine UA 0.2 E.U./dL (0.2)
[2020-09-23 06:50] LABS: Amorphous Sediment Urine 1+; Appearance Urine UA Slightly Cloudy; Bacteria Urine Moderate (10-30); Culture Indicated Urine Specimen Cultured; Hyaline Casts Urine 0-1/LPF; RBC Urine 0-1/HPF (0-5/HPF); Squamous Epithelial Cell Urine 0-1 /HPF (0-5/HPF); WBC Urine 5-10/HPF (0-5/HPF)
--- NOTE | 2020-09-23 08:02 | DIET.PN ---
Dietary Progress Note RD Note: Covid Positive patient c cardiac hx and DM2 on insulin (A1c 7.1) assigned small CCD. Kitchen sending up ONS Ensure Max c lunches to support pts protein need in CCD and bariatric friendly formula.
[2020-09-23] MEDS: HYDRALAZINE 25 MG TABLET 50 MG PO ×2 (08:53→21:14)
[2020-09-23] MEDS: METOPROLOL IR 50 MG TABLET 200 MG PO (08:54)
[2020-09-23] MEDS: ATORVASTATIN 20 MG TABLET 40 MG PO (08:54)
[2020-09-23] MEDS: ASPIRIN 81 MG CHEW TAB PO (08:54)
[2020-09-23] MEDS: AMLODIPINE 5 MG TABLET PO (08:54)
[2020-09-23] MEDS: CLOPIDOGREL 75 MG TABLET PO (08:54)
[2020-09-23] MEDS: TERAZOSIN 5 MG CAPSULE PO (08:54)
[2020-09-23] MEDS: DEXAMETHASONE 10 MG/ML VIAL 6 MG PO (08:55)
[2020-09-23] MEDS: ACETAMINOPHEN 325 MG TABLET 650 MG PO (09:19)
--- NOTE | 2020-09-23 11:36 | P.PN_ITS ---
Subjective Subjective Date Patient Seen: 09/23/20 Time Patient Seen: 11:37 Interval history: Rickie Hand is a 54-year-old male with a past medical history of CAD, type 2 diabetes, obesity, and hypertension who was admitted with acute respiratory failure requiring supplemental oxygen secondary to COVID-19 pneumonia. His respiratory symptoms are somewhat improved today, and he is saturating well in the mid to low 90s on room air. He was able to ambulate in the room, although he still became quite lightheaded and dizzy due to his dehydration and still feels very weak. His oxygen saturation after ambulation, although limited, was 96%. Exam Vital Signs (past 8 hours): - 09/23/20 04:00 09/23/20 07:44 09/23/20 08:00 Temperature 98.2 F Pulse Rate 62 60 Respiratory Rate 15 17 Blood Pressure 124/58 L 146/66 H Pulse Oximetry 96 95 95 09/23/20 08:53 Temperature Pulse Rate 60 Respiratory Rate Blood Pressure 146/66 H Pulse Oximetry Oxygen Delivery Method Nasal Cannula Oxygen Flow Rate 2 Narrative Exam Narrative: General: Patient is a well-developed, well-nourished delightful male in no distress at this time. HEENT: Normocephalic, atraumatic, extraocular muscles intact, oral pharynx is clear and mucous membranes are dry. Neck nontender, no masses palpated. Chest: Normal AP diameter and contour without kyphoscoliosis, no nasal flaring, retractions, or tachypneic labored Lungs: Auscultation of all lung reyna are clear decreased but equal without wheezes, rhonchi, or rales. Cardio: S1 & S2 with regular rate and rhythm without murmur, rubs, or gallops. Abdomen: Soft non-tender, non-distended. Musculoskeletal: Muscle strength and tone are equal within normal limits, no deformity, crepitus, effusions, cyanosis, clubbing or edema present. Full range of motion intact radial and pedal pulses are normal. Skin: Warm dry and intact without rashes, ulcerations or petechiae. Neuro: Alert and orientated x3, strength is +5/5 in all extremities, sensation to touch intact, no gross deficits noted of cranial nerves. Psych: Patient has a well-kept appearance, appropriate affect, mental status attitude thought context and judgment are appropriate for age. Objective Labs Result Diagrams: 09/22/20 20:25 09/23/20 04:25 Labs: Laboratory Results - last 24 hr 09/22/20 09/22/20 09/22/20 20:25 20:25 20:25 WBC 3.5 L RBC 5.04 Hgb 14.1 Hct 42.7 MCV 84.7 MCH 28.0 MCHC 33.1 RDW 14.4 Plt Count 116 L Neut % (Auto) 64.0 Lymph % (Auto) 24.7 L [place] % (Auto) 10.9 Eos % (Auto) 0.0 L Baso % (Auto) 0.4 Neut # (Auto) 2200 Lymph # (Auto) 900 L [place] # (Auto) 400 Eos # (Auto) 0 Baso # (Auto) 0 ESR PT 13.4 H INR 1.2 APTT 32 D-Dimer Sodium 134 L Potassium 3.4 Chloride 101 Carbon Dioxide 23 BUN 22 H Creatinine 1.34 H Estimated GFR 55.3 L BUN/Creatinine Ratio 16.4 Glucose 259 H Hemoglobin A1c Lactate Calcium 8.3 L Magnesium Ferritin Total Bilirubin 0.4 AST 82 H ALT 48 Alkaline Phosphatase 78 Lactate Dehydrogenase Total Creatine Kinase 188 H CK-MB (CK-2) < 0.22 CK-MB (CK-2) Rel Index 0.1 L Troponin I 0.034 C-Reactive Protein NT-Pro-B Natriuret Pep Total Protein 6.7 Albumin 3.6 Globulin 3.1 Albumin/Globulin Ratio 1.2 Procalcitonin Urine Color Urine Appearance Urine pH Ur Specific [place] Urine Protein Urine Glucose (UA) Urine Ketones Urine Occult Blood Urine Nitrate Urine Bilirubin Urine Urobilinogen Ur Leukocyte Esterase Urine RBC Urine WBC Ur Squamous Epith Cells Amorphous Sediment Urine Bacteria Hyaline Casts Ur Culture Indicated? Nasal Screen MRSA (PCR) SARS-CoV-2 (PCR) 09/22/20 09/22/20 09/22/20 20:25 20:25 20:25 WBC RBC Hgb Hct MCV MCH MCHC RDW Plt Count Neut % (Auto) Lymph % (Auto) [place] % (Auto) Eos % (Auto) Baso % (Auto) Neut # (Auto) Lymph # (Auto) [place] # (Auto) Eos # (Auto) Baso # (Auto) ESR PT INR APTT D-Dimer 204 Sodium Potassium Chloride Carbon Dioxide BUN Creatinine Estimated GFR BUN/Creatinine Ratio Glucose Hemoglobin A1c 7.1 H Lactate Calcium Magnesium Ferritin 220 Total Bilirubin AST ALT Alkaline Phosphatase Lactate Dehydrogenase 678 H Total Creatine Kinase CK-MB (CK-2) CK-MB (CK-2) Rel Index Troponin I C-Reactive Protein 5.9 H NT-Pro-B Natriuret Pep Total Protein Albumin Globulin Albumin/Globulin Ratio Procalcitonin 0.15 Urine Color Urine Appearance Urine pH Ur Specific [place] Urine Protein Urine Glucose (UA) Urine Ketones Urine Occult Blood Urine Nitrate Urine Bilirubin Urine Urobilinogen Ur Leukocyte Esterase Urine RBC Urine WBC Ur Squamous Epith Cells Amorphous Sediment Urine Bacteria Hyaline Casts Ur Culture Indicated? Nasal Screen MRSA (PCR) SARS-CoV-2 (PCR) 09/22/20 09/22/20 09/22/20 20:25 20:25 21:45 WBC RBC Hgb Hct MCV MCH MCHC RDW Plt Count Neut % (Auto) Lymph % (Auto) [place] % (Auto) Eos % (Auto) Baso % (Auto) Neut # (Auto) Lymph # (Auto) [place] # (Auto) Eos # (Auto) Baso # (Auto) ESR 15 PT INR APTT D-Dimer Sodium Potassium Chloride Carbon Dioxide BUN Creatinine Estimated GFR BUN/Creatinine Ratio Glucose Hemoglobin A1c Lactate Calcium Magnesium 2.0 Ferritin Total Bilirubin AST ALT Alkaline Phosphatase Lactate Dehydrogenase Total Creatine Kinase CK-MB (CK-2) CK-MB (CK-2) Rel Index Troponin I C-Reactive Protein NT-Pro-B Natriuret Pep Total Protein Albumin Globulin Albumin/Globulin Ratio Procalcitonin Urine Color Urine Appearance Urine pH Ur Specific [place] Urine Protein Urine Glucose (UA) Urine Ketones Urine Occult Blood Urine Nitrate Urine Bilirubin Urine Urobilinogen Ur Leukocyte Esterase Urine RBC Urine WBC Ur Squamous Epith Cells Amorphous Sediment Urine Bacteria Hyaline Casts Ur Culture Indicated? Nasal Screen MRSA (PCR) SARS-CoV-2 (PCR) Positive H 09/22/20 09/22/20 09/23/20 21:55 23:55 04:25 WBC RBC Hgb Hct MCV MCH MCHC RDW Plt Count Neut % (Auto) Lymph % (Auto) [place] % (Auto) Eos % (Auto) Baso % (Auto) Neut # (Auto) Lymph # (Auto) [place] # (Auto) Eos # (Auto) Baso # (Auto) ESR PT 13.2 H INR 1.2 APTT D-Dimer Sodium Potassium 3.8 Chloride Carbon Dioxide BUN Creatinine Estimated GFR BUN/Creatinine Ratio Glucose Hemoglobin A1c Lactate 0.9 Calcium Magnesium Ferritin Total Bilirubin AST ALT Alkaline Phosphatase Lactate Dehydrogenase Total Creatine Kinase CK-MB (CK-2) CK-MB (CK-2) Rel Index Troponin I C-Reactive Protein NT-Pro-B Natriuret Pep Total Protein Albumin Globulin Albumin/Globulin Ratio Procalcitonin Urine Color Urine Appearance Urine pH Ur Specific [place] Urine Protein Urine Glucose (UA) Urine Ketones Urine Occult Blood Urine Nitrate Urine Bilirubin Urine Urobilinogen Ur Leukocyte Esterase Urine RBC Urine WBC Ur Squamous Epith Cells Amorphous Sediment Urine Bacteria Hyaline Casts Ur Culture Indicated? Nasal Screen MRSA (PCR) SARS-CoV-2 (PCR) 09/23/20 09/23/20 09/23/20 04:25 04:25 04:25 WBC RBC Hgb Hct MCV MCH MCHC RDW Plt Count Neut % (Auto) Lymph % (Auto) [place] % (Auto) Eos % (Auto) Baso % (Auto) Neut # (Auto) Lymph # (Auto) [place] # (Auto) Eos # (Auto) Baso # (Auto) ESR PT INR APTT D-Dimer 250 H Sodium 137 Potassium 4.2 Chloride 108 H Carbon Dioxide 23 BUN 21 H Creatinine 1.09 Estimated GFR > 60.0 BUN/Creatinine Ratio 19.3 Glucose 244 H Hemoglobin A1c Lactate 0.9 Calcium 7.2 L Magnesium Ferritin Total Bilirubin 0.2 AST 61 H ALT 41 Alkaline Phosphatase 62 Lactate Dehydrogenase Total Creatine Kinase CK-MB (CK-2) CK-MB (CK-2) Rel Index Troponin I C-Reactive Protein NT-Pro-B Natriuret Pep 155 H Total Protein 6.0 L Albumin 3.2 L Globulin 2.8 Albumin/Globulin Ratio 1.1 Procalcitonin Urine Color Urine Appearance Urine pH Ur Specific [place] Urine Protein Urine Glucose (UA) Urine Ketones Urine Occult Blood Urine Nitrate Urine Bilirubin Urine Urobilinogen Ur Leukocyte Esterase Urine RBC Urine WBC Ur Squamous Epith Cells Amorphous Sediment Urine Bacteria Hyaline Casts Ur Culture Indicated? Nasal Screen MRSA (PCR) SARS-CoV-2 (PCR) 09/23/20 09/23/20 06:16 07:00 WBC RBC Hgb Hct MCV MCH MCHC RDW Plt Count Neut % (Auto) Lymph % (Auto) [place] % (Auto) Eos % (Auto) Baso % (Auto) Neut # (Auto) Lymph # (Auto) [place] # (Auto) Eos # (Auto) Baso # (Auto) ESR PT INR APTT D-Dimer Sodium Potassium Chloride Carbon Dioxide BUN Creatinine Estimated GFR BUN/Creatinine Ratio Glucose Hemoglobin A1c Lactate Calcium Magnesium Ferritin Total Bilirubin AST ALT Alkaline Phosphatase Lactate Dehydrogenase Total Creatine Kinase CK-MB (CK-2) CK-MB (CK-2) Rel Index Troponin I C-Reactive Protein NT-Pro-B Natriuret Pep Total Protein Albumin Globulin Albumin/Globulin Ratio Procalcitonin Urine Color Yellow Urine Appearance Slightly cloudy Urine pH 7.0 Ur Specific [place] 1.010 Urine Protein 1+ H Urine Glucose (UA) 2+ H Urine Ketones Trace H Urine Occult Blood Trace-lysed Urine Nitrate Positive Urine Bilirubin Negative Urine Urobilinogen 0.2 Ur Leukocyte Esterase Negative Urine RBC 0-1/hpf Urine WBC 5-10/hpf H Ur Squamous Epith Cells 0-1 /hpf Amorphous Sediment 1+ Urine Bacteria Moderate (10-30) H Hyaline Casts 0-1/lpf Ur Culture Indicated? Specimen cultured Nasal Screen MRSA (PCR) Negative for mrsa SARS-CoV-2 (PCR) [facility] Medical History (Updated 09/23/20 @ 02:00 by JESSICA Hilario) Coronary artery disease due to type 2 diabetes mellitus Coronary artery disease involving autologous artery coronary bypass graft Essential hypertension Hyperlipidemia associated with type 2 diabetes mellitus Insulin dependent type 2 diabetes mellitus, uncontrolled Surgical History (Updated 09/23/20 @ 02:00 by JESSICA Hilario) History of coronary artery stent placement Hx of CABG Family History (Updated 09/23/20 @ 02:02 by JESSICA Hilario) Father Heart attack Hyperlipidemia Hypertension Mother Parent-child estrangement nec Social History household members: spouse Smoking Status: Never smoker Assessment & Plan Assessment & Plan narrative: Rickie Hand is a 54-year-old male with a past medical history of CAD, type 2 diabetes, obesity, and hypertension who was admitted with acute respiratory failure requiring supplemental oxygen secondary to COVID-19 pneumonia. 1.Acute COVID pneumonia, acute, present on admission SARS-CoV-2 -positive COVID test 4 days prior to admission. He developed hypoxia to 88% on room air. Was started on supplemental oxygen, remdesevir, and steroids. He is no longer on O2 this morning but remains very fatigued, weak, dehydrated today. -LDH 678 on admission, CRP 5.9. Will repeat LDH tomorrow. D-dimer 250 on admission. 2. Syncopal episode, witnessed, acute, not present on admission-likely the result of orthostatic hypotension secondary to COVID pneumonia infection resulting in dehydration from diarrhea. -continue normal saline 100 cc/hour 3. Insulin-dependent type 2 diabetes associated with hyperlipidemia and coronary artery disease,, present on admission -BS 259, A1C indicating adequate control at 7.1% --will hold all oral/injection medications for diabetes, diabetes protocol ordered patient to receive NovoLog low-dose sliding scale Monitor for hypoglycemia. -contiue home medications for HLD and CAD including plavix, asa, statin, fenofibrate, 4. Essential hypertension, chronic, not present on admission, associated with hyperlipidemia and coronary artery disease, chronic, control unknown ultimate resulting in CABG with stent placement x6, not present on admission -continue patient's amlodipine, hydralazine, hydrochlorothiazide, metoprolol -monitor patient for hypotension 5. Acute hypoxic respiratory failure, resolved. - o2 sat to 88% on room air, improved with supplemental oxygen and steroid/remdesevir therapy for COVID-19 pneumonia. COVID PCR: Positive 09/20/2020 Dispo: Patient remains weak, fatigued, dehydrated secondary to COVID 19. Will continue to monitor today, possible discharge home tomorrow. Patient lives in an RV with his , also COVID +. VTE prophylaxis: Patient on asa / plavix, add lovenox 40 daily as well. Code status:Full Surrogate decision maker: Spouse Hortencia Hand Pastor VTE Deep Vein Thrombosis/Pulmonary Embolism Present on Admission: No
[2020-09-23] MEDS: ENOXAPARIN 40 MG/0.4 ML SYRINGE SUBCUT (12:10)
--- NOTE | 2020-09-23 13:49 | CM.IDA ---
Initial DCP Assessment Note Pt is a 54 yo male, currently traveling w/spouse in RV, from [place], presents COVID-19+, ED for chief complaint of diaphoresis, nausea and admitted with acute respiratory failure requiring supplemental oxygen secondary to COVID-19 pneumonia PCP: Established w/medical care in [place], [place] per H+P Payer: Gael VIZCARRA/Lyn According to Dr Ambrosio, patient may be stable enough for DC back to RV tomorrow. No needs expected from DC planning team although will remain available in case this changes . KATHIE Beck
--- NOTE | 2020-09-23 15:01 | PC.NURSE ---
summary - A/Ox4, c/o of fatigue only for covid symptoms. Sm formed BM today. 95% RA. denies nausea SOB or PHELPS. RAC NS @ 100. BG- 172 1 unit and 152 1 unit. Tele NSR 63 60. Indep in room to bathroom. some appetite, ate 25% breakfast, 75% lunch. Call light in reach, no further needs at this time.
[2020-09-23] MEDS: ISOSORBIDE DINITRATE 20 MG TABLET PO (21:15)
[2020-09-24] VITALS (9 sets, daily range): BP systolic 133–137; BP diastolic 62–63; PULSE 58–70; RESP 13–23; TEMP 36.7–37.6; O2SAT 94–96
--- NOTE | 2020-09-24 01:51 | PC.NURSE ---
2357: patient is alert and oriented. Breath sounds diminished at bases with expiratory wheeze in left LL. O2 sat of RA was 93% but concerned about oxygen levels dropping at night and not wanting to wear CPAP so requested to have oxygen applied so currently on 2L/min per NC with sat of 96%. Has intermittent non productive cough. HRR w/telemetry reading of SR w/BBB. Denies nausea. BT present and abdomen is soft; denies further episodes of diarrhea. Denies dysuria, frequency or urgency with urination. Is able to turn himself in bed. Fall risk score is high but patient refusing to have alarm on as states he has to wait too long for staff to answer call light. Agreeable to having BSC placed next to bed to use during night if he has to go urgently but agreeable to calling for staff assistance. Denies feeling weak, dizzy or lightheaded. Refusing to wear SCD's so reminded to ankle wave. On droplet + airborne with aerosolizing treatment precautions as is COVID positive. Denies pain.
[2020-09-24] MEDS: PANTOPRAZOLE 20 MG TABLET PO (05:23)
[2020-09-24] MEDS: ACETAMINOPHEN 325 MG TABLET 650 MG PO (05:23)
[2020-09-24 06:05] LABS: INR 1.2 (0.9-1.3)
[2020-09-24 06:29] LABS: Alanine Aminotransferase 30 IU/L (<50); Albumin 2.9 g/dL (3.5-5.0); Alkaline Phosphatase 57 U/L (38-126); Aspartate Aminotransferase 42 IU/L (17-59); BUN Creatinine Ratio 22.1 (6-22); Bilirubin Total 0.1 mg/dL (0.2-1.3); Blood Urea Nitrogen 21 mg/dL (9-20); Calcium 7.4 mg/dL (8.4-10.2); Carbon Dioxide 22 mmol/L (22-32); Chloride 108 mmol/L (98-107); Creatine Kinase 280 U/L (55-170); Estimated Glomerular Filt Rate > 60.0 mL/min (>60); Globulin 2.8 g/dL (1.7-4.1); Glucose 185 mg/dL (70-100); HEMOLYSIS < 15 (0-50); Potassium 3.6 mmol/L (3.4-5.1); Sodium 137 mmol/L (137-145); Total Protein 5.7 g/dL (6.3-8.2)
[2020-09-24 06:30] LABS: Alanine Aminotransferase 30 IU/L (<50); Albumin Globulin Ratio 1.1 (1.0-2.8); Alkaline Phosphatase 55 U/L (38-126); Aspartate Aminotransferase 41 IU/L (17-59); Bilirubin Total 0.1 mg/dL (0.2-1.3); Bilirubin Unconjugated 0.1 mg/dL (0.0-1.1); Globulin 2.7 g/dL (1.7-4.1); HEMOLYSIS < 15 (0-50); Total Protein 5.7 g/dL (6.3-8.2)
[2020-09-24 06:40] LABS: Troponin I 0.038 ng/mL (0.01-0.034)
[2020-09-24 06:44] LABS: CKMB % Relative Index 0.2 % (1.5-5.0); Creatine Kinase MB 0.58 ng/mL (<2.37)
[2020-09-24 06:51] LABS: Add Manual Diff / Slide Review NO; Basophils Absolute Auto 0 /uL (0-100); Basophils Percent Auto 0.4 % (0-2); Eosinophils Absolute Auto 0 /uL (0-450); Hematocrit 37.8 % (41-53); Hemoglobin 12.2 g/dL (13.5-17.5); Lymphocytes Absolute Auto 1000 /uL (1100-4500); Lymphocytes Percent Auto 29.6 % (25-40); Mean Corpuscular HGB Conc 32.3 % (30-36); Mean Corpuscular Hemoglobin 27.5 PG (26-34); Mean Corpuscular Volume 85.1 fL (80-100); Monocytes Absolute Auto 300 /uL (0-900); Monocytes Percent Auto 9.5 % (3-14); Neutrophils Absolute Auto 2000 /uL (1500-7000); Neutrophils Percent Auto 60.5 % (50-75); Platelet Count 98 X10^3/uL (150-400); Red Blood Cell Count 4.45 X10^6/uL (4.5-5.9); Red Cell Distribution Width 14.2 % (11.6-14.8); White Blood Cell Count 3.3 X10^3/uL (4.5-11.0)
[2020-09-24] MEDS: HYDRALAZINE 25 MG TABLET 50 MG PO (08:06)
[2020-09-24] MEDS: AMLODIPINE 5 MG TABLET PO (08:06)
[2020-09-24] MEDS: CLOPIDOGREL 75 MG TABLET PO (08:07)
[2020-09-24] MEDS: TERAZOSIN 5 MG CAPSULE PO (08:07)
[2020-09-24] MEDS: ATORVASTATIN 20 MG TABLET 40 MG PO (08:07)
[2020-09-24] MEDS: ASPIRIN 81 MG CHEW TAB PO (08:07)
[2020-09-24] MEDS: ISOSORBIDE DINITRATE 20 MG TABLET PO (08:07)
[2020-09-24] MEDS: METOPROLOL IR 50 MG TABLET 200 MG PO (08:07)
[2020-09-24] MEDS: INSULIN ASPART 100 UNIT/ML INSULN PEN SUBCUT (08:11)
--- NOTE | 2020-09-24 08:11 | P.DS_ITS ---
History of Present Illness History of Present Illness Date Patient Seen: 09/24/20 Time Patient Seen: 08:11 Chief complaint: Syncope + COVID Saturday Narrative: Per HEIDY Hilario: Patient is a 54-year-old male Rickie Hand who tested positive for COVID on Saturday. Patient presented to the ED for chief complaint of diaphoresis, m yalgias, nausea without vomiting, diarrhea and felt generally unwell, symptoms starting approximately a week ago on Saturday. He states he had a syncopal episode yesterday at approximately 8:00 p.m., observed by his , he is unsure as to how long he lost consciousness but things with approximately a few seconds he does not believe he hit his head but is unsure. He did feel like he was about to pass out for the past several days, but that sensation has resolved upon admit. The patient reports that he has had diarrhea up to 5 times a day for the past several days, mild diffuse cramping abdominal pain, positive nausea and coughing, runny nose, scratchy throat but no vomiting, fever, body aches or chills. He denies chest pain, pressure, shortness of breath, loss of taste, leg pain, or swelling of his feet or lower legs. He states that he has been incontinent of urine for the past couple days ?I have been getting up to get to the bathroom realizing I was not going to make it. This is a new symptom for him and just onset couple days ago. He denies burning urgency or frequency. States he has been drinking fluids but has a poor appetite. Patient does have a cardiac history he has had 4 heart attacks and a triple bypass with subsequently 6 stents, hypertension, dyslipidemia. Patient denies a history of PE or DVT. Patient states that he retired so that he and his could live in their RV and travel. His primary care and Cardiology are in [place]. Hortencia is being tested for COVID tomorrow. Upon admit to the floor patient's vital signs are as follows temp 98.8?, BP 103/54, HR 68, RR 19, O2 saturation 98% on 2 L nasal cannula. Labs patient has a positive COVID PCR, WBC 3.5, platelets 116, Na 134, BUN 22, CR 1.34, glucose 259, EGFR 55.3, D-dimer 204, lactate 678, total creatinine kinase 188, CK-MB RI 0.1%, troponin 0.034, CRP 5.9, procalcitonin 0.15. CXR:Patchy left basilar airspace opacities which could represent atelectasis or pneumonia. Patient will it be admitted to the hospital for observation/isolation for COVID pneumonia, patient is on O2 so will initiate remdesivir 200 mg and dexamethasone 6 mg in the ED per protocol. Discharge Providers Provider Date of admission: 09/22/20 23:54 Discharge Date: 09/24/20 Discharge provider: Oziel Ambrosio DO Summary Hospital Course Discharge Diagnosis: Please see hospital course by problem list noted below. Hospital Course: Rickie Hand is a 54-year-old male with a past medical history of CAD, type 2 diabetes, obesity, and hypertension who was admitted with acute respiratory failure requiring supplemental oxygen secondary to COVID-19 pneumonia. 1.Acute COVID pneumonia, acute, present on admission SARS-CoV-2 -positive COVID test 4 days prior to admission. He developed hypoxia to 88% on room air but while sleeping so this could have been due to DARCY. Was started on supplemental oxygen, remdesevir, and steroids. He is no longer on O2 as of the past 24 hours and has ambulated without desaturation. -LDH 678 on admission, CRP 5.9. D-dimer 250 on admission. -patient had continued stable symptoms and was starting to feel slightly stronger. Was discharged home. Zofran was prescribed on discharge for nausea. 2. Syncopal episode, witnessed, acute, secondary to dehydation and orthostasis. -continue normal saline 100 cc/hour until he was adequately rehydrated. 3. Insulin-dependent type 2 diabetes associated with hyperlipidemia and coronary artery disease,, present on admission -BS 259 on admission, A1C indicating adequate control at 7.1% --held all oral medications during admission. -contiue home medications for HLD and CAD including plavix, asa, statin, fenofibrate, 4. Essential hypertension, chronic, not present on admission, associated with hyperlipidemia and coronary artery disease, chronic, control unknown ultimate resulting in CABG with stent placement x6, not present on admission -continue patient's amlodipine, hydralazine, hydrochlorothiazide, metoprolol -monitor patient for hypotension 5. Possible acute hypoxic respiratory failure, resolved. - o2 sat to 88% on room air while sleeping which also could but to underlying DARCY, improved with supplemental oxygen and steroid/remdesevir therapy for COVID- 19 pneumonia. Steroid / remdesevir therapy was discontinued when he no longer required supplemental oxygen. Time Spent with Patient Time spent: Greater than 30 minutes Exam Vital Signs (past 8 hours): - 09/24/20 04:08 09/24/20 04:26 09/24/20 05:23 Temperature 98.0 F 99.6 F Pulse Rate 69 Respiratory Rate 13 Blood Pressure 137/63 Pulse Oximetry 94 95 09/24/20 06:47 09/24/20 06:48 Temperature 98.8 F 98.8 F Pulse Rate Respiratory Rate Blood Pressure Pulse Oximetry Oxygen Delivery Method Nasal Cannula Oxygen Flow Rate 2 Narrative Exam Narrative: General: Patient is a well-developed, well-nourished male in no distress. HEENT: Normocephalic, atraumatic, extraocular muscles intact, oral pharynx is clear and mucous membranes are moist. Neck nontender, no masses palpated. Chest: Normal AP diameter and contour without kyphoscoliosis, no nasal flaring, retractions, or tachypneic labored Lungs: Auscultation of all lung reyna are clear decreased but equal without wheezes, rhonchi, or rales. Cardio: S1 & S2 with regular rate and rhythm without murmur, rubs, or gallops. Abdomen: Soft non-tender, non-distended. Musculoskeletal: Muscle strength and tone are equal within normal limits, no deformity, crepitus, effusions, cyanosis, clubbing or edema present. Full range of motion intact radial and pedal pulses are normal. Skin: Warm dry and intact without rashes, ulcerations or petechiae. Neuro: Alert and orientated x3, strength is +5/5 in all extremities, sensation to touch intact, no gross deficits noted of cranial nerves. Psych: Patient has a well-kept appearance, appropriate affect, mental status attitude thought context and judgment are appropriate for age. Objective Labs Result Diagrams: 09/24/20 05:33 09/24/20 05:33 Labs: Laboratory Results - last 24 hr 09/23/20 09/24/20 09/24/20 07:00 05:33 05:33 WBC RBC Hgb Hct MCV MCH MCHC RDW Plt Count Neut % (Auto) Lymph % (Auto) [place] % (Auto) Eos % (Auto) Baso % (Auto) Neut # (Auto) Lymph # (Auto) [place] # (Auto) Eos # (Auto) Baso # (Auto) PT 14.0 H INR 1.2 Sodium Potassium Chloride Carbon Dioxide BUN Creatinine Estimated GFR BUN/Creatinine Ratio Glucose Calcium Total Bilirubin 0.1 L Conjugated Bilirubin 0.0 Unconjugated Bilirubin 0.1 AST 41 ALT 30 Alkaline Phosphatase 55 Total Creatine Kinase CK-MB (CK-2) CK-MB (CK-2) Rel Index Troponin I Total Protein 5.7 L Albumin 3.0 L Globulin 2.7 Albumin/Globulin Ratio 1.1 Nasal Screen MRSA (PCR) Negative for mrsa 09/24/20 09/24/20 09/24/20 05:33 05:33 05:33 WBC 3.3 L RBC 4.45 L Hgb 12.2 L Hct 37.8 L MCV 85.1 MCH 27.5 MCHC 32.3 RDW 14.2 Plt Count 98 L Neut % (Auto) 60.5 Lymph % (Auto) 29.6 [place] % (Auto) 9.5 Eos % (Auto) 0.0 L Baso % (Auto) 0.4 Neut # (Auto) 2000 Lymph # (Auto) 1000 L [place] # (Auto) 300 Eos # (Auto) 0 Baso # (Auto) 0 PT INR Sodium 137 Potassium 3.6 Chloride 108 H Carbon Dioxide 22 BUN 21 H Creatinine 0.95 Estimated GFR > 60.0 BUN/Creatinine Ratio 22.1 H Glucose 185 H Calcium 7.4 L Total Bilirubin 0.1 L Conjugated Bilirubin Unconjugated Bilirubin AST 42 ALT 30 Alkaline Phosphatase 57 Total Creatine Kinase 280 H CK-MB (CK-2) 0.58 CK-MB (CK-2) Rel Index 0.2 L Troponin I 0.038 H Total Protein 5.7 L Albumin 2.9 L Globulin 2.8 Albumin/Globulin Ratio 1.0 Nasal Screen MRSA (PCR) [facility] Medical History (Updated 09/23/20 @ 02:00 by JESSICA Hilario) Coronary artery disease due to type 2 diabetes mellitus Coronary artery disease involving autologous artery coronary bypass graft Essential hypertension Hyperlipidemia associated with type 2 diabetes mellitus Insulin dependent type 2 diabetes mellitus, uncontrolled Surgical History (Updated 09/23/20 @ 02:00 by JESSICA Hilario) History of coronary artery stent placement Hx of CABG Family History (Updated 09/23/20 @ 02:02 by JESSICA Hilario) Father Heart attack Hyperlipidemia Hypertension Mother Parent-child estrangement nec Social History household members: spouse Smoking Status: Never smoker Discharge Plan Discharge Plan Patient Disposition: Home Provider Discharge Comment: You were admitted to the hospital with COVID pne [place]. You improved with a single dose of antiviral and steroids. You were only on O2 for a brief period of time and you began to slowly improve. Recommend self isolation for at least 20 days since your first positive test date OR resolution of symptoms, which ever is longest. I would recommend holding your HCTZ medication at home until you are feeling better. Try to schedule a telehealth visit with your PCP for a checkup on your symptoms in 1-2 weeks. Discharge orders & Medications Prescriptions: New ondansetron 4 mg tablet,disintegrating 4 mg PO Q8H PRN (Reason: nausea and vomiting) 30 Days Qty: 30 RF: 0 Continued metformin 1,000 mg Tablet 1,000 mg PO BID RF: 0 aspirin 81 mg Tablet 81 mg PO DAILY RF: 0 isosorbide dinitrate 20 mg Tablet 20 mg PO BID RF: 0 hydralazine 50 mg Tablet 50 mg PO BID RF: 0 Jardiance 25 mg Tablet 25 mg PO QAM RF: 0 atorvastatin 40 mg Tablet 40 mg PO DAILY RF: 0 terazosin 5 mg Tablet 5 mg PO DAILY RF: 0 metoprolol tartrate 100 mg Tablet 200 mg PO DAILY RF: 0 clopidogrel [Plavix] 75 mg Tablet 75 mg PO DAILY RF: 0 amlodipine 5 mg Tablet 5 mg PO DAILY RF: 0 vitamin B complex [B Complex-Vitamin B12] Tablet 1 tab PO DAILY RF: 0 insulin lispro 100 unit/mL Insulin Pen 15 unit SUBCUT DAILY RF: 0 fenofibrate 54 mg Tablet 54 mg PO DAILY RF: 0 Trulicity 1.5 mg/0.5 mL Pen Injector 1.5 mg SUBCUT QWEEK RF: 0 Tresiba U-100 Insulin 100 unit/mL Solution 76 unit SUBCUT DAILY RF: 0 Discontinued hydrochlorothiazide 25 mg Tablet 25 mg PO Q OTHER DAY RF: 0 Diet/Activity/Treatments Diet: Diet as Tolerated Activity: As tolerated Visit Report/Discharge Packet Instructions: Ondansetron, DI for COVID-19 (Suspected or Confirmed ), How to Care for Someone with COVID-19, COVID-19: Protecting Yourself When You're at High Risk Quality VTE Deep Vein Thrombosis/Pulmonary Embolism Present on Admission: No
[2020-09-24] MEDS: ONDANSETRON 4 MG ODT PO (08:35)
--- NOTE | 2020-09-24 10:41 | PC.NURSE ---
Pt is dressed and ready for discharge home with Spouse. Pt did not have clothes with him so clothes were provided. Went over d/c instructions with Pt-discussed d/c meds, time of last dose, reviewed stroke education, discussed COVID safety-isolating for 20 days from 1st positive COVID test or zero symptoms whichever is longest, drink fluids to prevent constipation or dehydration, move slowly and rest as needed especially if feeling dizzy. Call or come to the ER if symptoms worsen, and follow up via telehealth with your PCP in 1-2 weeks. Pt denies further questions and states he will be ready to go as soon as his arrives. IV removed. Spouse also has COVID so she cannot come inside the hospital so we will be taking Pt out through the ER wearing a mast and to his POV.
--- NOTE | 2020-09-24 11:40 | PC.NURSE ---
Pt out via w/c by RN to POV with Spouse and all belongings.
[2020-09-25 14:34] LABS: Lactate Dehydrogenase 669 U/L (313-618)
[2020-09-27 08:21] LABS: COVID19 - ADMIT (NP swab/PCR) POSITIVE (Negative)
== END 2020-09-24 11:15 | disposition home or self-care (01) | DRG 177 ==
LOC: ED 23:16 → ICU 09-23 09:14 → AC 09-23 12:07 → ICU 09-23 12:08
PROVIDERS: Internal Medicine; Admitting Provider Nurse Practitioner Family; Emergency Provider Emergency Medicine; Referring Provider Emergency Medicine; Visit Provider Nurse Practitioner Family
DX: U07.1 COVID-19 (principal); J12.82 Pneumonia due to coronavirus disease 2019; J96.01 Acute respiratory failure with hypoxia; I25.810 Atherosclerosis of coronary artery bypass graft(s) without angina pectoris; Z79.899 Other long term (current) drug therapy; E11.65 Type 2 diabetes mellitus with hyperglycemia; I10 Essential (primary) hypertension; Z95.5 Presence of coronary angioplasty implant and graft; E78.5 Hyperlipidemia, unspecified; E86.0 Dehydration; E66.9 Obesity, unspecified; Z68.33 Body mass index [BMI] 33.0-33.9, adult; G47.30 Sleep apnea, unspecified
CPT/HCPCS: 36415; 71045; 80053; 80076; 81001; 82550; 82553; 82728; 82962; 83036; 83605; 83615; 83735; 83880; 84132; 84145; 84484; 85025; 85379; 85610; 85651; 85730; 86140; 87040; 87077; 87086; 87186; 87635; 87797; 93005; 94660; 96361; 96374; 99285; A9270; J1100; J1650